=== PATIENT | male | born 1970 | race American Indian/Alaskan Native ===

== ENCOUNTER 2017-07-12 12:03 | Observation (INO) | payer BC ==
[2017-07-11 10:23] LABS: Basophils % (Auto) 0.4 % (0.0-1.8); Eosinophils # (Auto) 0.1 K/mm3 (0.0-0.4); Eosinophils % (Auto) 0.8 % (0.0-4.3); Hematocrit 40.3 % (35.5-45.6); Hemoglobin 13.3 gm/dl (11.8-15.2); Lymphocytes # (Auto) 1.8 K/mm3 (1.2-5.4); Lymphocytes % (Auto) 26.4 % (13.4-35.0); Mean Corpuscular HGB Conc 33 % (32-34); Mean Corpuscular Hemoglobin 29 pg (28-32); Mean Corpuscular Volume 88 fl (84-94); Monocytes # (Auto) 0.5 K/mm3 (0.0-0.8); Monocytes % (Auto) 7.2 % (0.0-7.3); Platelet Count 236 K/mm3 (140-440); Red Blood Count 4.55 M/mm3 (3.65-5.03); Red Cell Distribution Width 14.6 % (13.2-15.2)
[2017-07-11 10:32] LABS: INR 0.99 (0.87-1.13)
[2017-07-11 10:33] LABS: Partial Thromboplastin Time 28.8 Sec. (24.2-36.6)
--- NOTE | 2017-07-11 10:39 | Anesthesia Consultation ---
Anesthesia Consult and Med Hx Date of service: 07/11/17 - Airway Anesthetic Teeth Evaluation: Good ROM Head & Neck: Adequate Mental/Hyoid Distance: Adequate Mallampati Class: Class III Intubation Access Assessment: Probably Good - Pulmonary Exam CTA: Yes - Cardiac Exam Cardiac Exam: RRR - Pre-Operative Health Status ASA Pre-Surgery Classification: ASA2 Proposed Anesthetic Plan: General - Pulmonary Hx Smoking: No Hx Sleep Apnea: No (MARGARITA PRE SCREEN HIGH RISK.) - Cardiovascular System Hx Hypertension: Yes (X 1 YR) - Gastrointestinal Hx Ulcer: No Hx Gastroesophageal Reflux Disease: No - Endocrine Hx Renal Disease: No - Other Systems Hx Cancer: No
[2017-07-11 10:44] LABS: Alanine Aminotransferase 57 units/L (7-56); Albumin 4.2 g/dL (3.9-5); BUN/Creatinine Ratio 18; Blood Urea Nitrogen 21 mg/dL (9-20); Hemolysis Index 12
[~2017-07-12 12:03] MED LIST: DILAUDID IV PRN; LACTATED RINGERS 1,000 ML IV SCH; NACL 0.9% 1000 ML 1,000 ML IV SCH; VERSED IV NR; ZOFRAN IV PRN
[2017-07-12] MEDS ORDERED: VANCOMYCIN/NS 1 GM/250 ML 1 GM/250 ML BAG IV ONE (12:59)
[2017-07-12] MEDS ORDERED: VANCOMYCIN PHARMACY TO DOSE IV SCH (13:00)
[2017-07-12] MEDS ORDERED: GARAMYCIN 120 MG in NACL 0.9% 100 ML IV ONE (13:15)
[2017-07-12] MEDS ORDERED: VANCOMYCIN/0.45 NS 1 GM/250 ML 1 GM/250 ML BAG IV NR (13:30)
--- NOTE | 2017-07-12 14:49 | History and Physical Report ---
History of Present Illness Chief complaint: High blood pressure History of present illness: 47 YO Male with HTN, Obesity admitted for Urology procedure. Consult placed for medical management. Pt seen and evaluated upon arrival to the surgical floor postoperatively. No reported nursing events. Pt denies fever, chills, CP, Palpitations, NVD, Syncope, BRBPR, Productive cough, headache, or skin rash. Pt does complain of generalized pain postop of 4/10. Pt awaiting pain medication. Past History Past Medical History: hypertension Past Surgical History: Other (urologic surgery) Social history: . denies: smoking, alcohol abuse, prescription drug abuse Family history: hypertension Medications and Allergies Allergies Allergy/AdvReac Type Severity Reaction Status Date / Time amoxicillin Allergy Hives Verified 07/10/17 15:23 Home Medications Medication Instructions Recorded Confirmed Last Taken Type Bupropion HCl [Wellbutrin XL] 300 mg PO QAM 07/10/17 07/12/17 07/12/17 08:00 History Losartan [Cozaar] 50 mg PO QDAY 07/10/17 07/10/17 07/11/17 History Vilazodone HCl [Viibryd] 40 mg PO QDAY 07/10/17 07/10/17 07/11/17 History Omeprazole 40 mg PO DAILY 07/12/17 07/12/17 07/12/17 08:00 History Active Meds: Active Medications Sodium Chloride (Nacl 0.9% 1000 Ml) 1,000 mls @ 42 mls/hr IV DIRECT OLIVA Last Admin: 07/12/17 12:45 Dose: 42 mls/hr Lactated Ringer's (Lactated Ringers) 1,000 mls @ 100 mls/hr IV DIRECT OLIVA Midazolam HCl (Versed) 2 mg IV PREOP NR Stop: 07/12/17 23:59 Last Admin: 07/12/17 12:50 Dose: 2 mg Vancomycin HCl (Vancomycin Pharmacy To Dose) 1 each IV PKCONSULT OLIVA Review of Systems Constitutional: no weight loss, no weight gain, no chills Ears, nose, mouth and throat: no ear pain, no ear discharge, no tinnitis, no decreased hearing, no nose pain, no nasal congestion, no nasal discharge Cardiovascular: no chest pain, no orthopnea, no palpitations, no rapid/ irregular heart beat, no edema, no syncope, no lightheadedness Respiratory: no cough, no cough with sputum, no excessive sputum, no hemoptysis , no shortness of breath Gastrointestinal: no nausea, no vomiting, no diarrhea, no constipation Genitourinary Male: no dysuria, no hematuria, no flank pain Rectal: no pain, no incontinence, no bleeding Musculoskeletal: no neck pain, no shooting arm pain, no arm numbness/tingling, no low back pain, no shooting leg pain Integumentary: no rash, no pruritis, no redness, no sores, no wounds, no jaundice Neurological: no transient paralysis, no paralysis, no weakness, no parathesias , no seizures, no syncope Psychiatric: no anxiety, no memory loss, no change in sleep habits, no sleep disturbances, no insomnia Endocrine: no cold intolerance, no heat intolerance, no polyphagia, no excessive thirst, no polydipsia, no polyuria, no nocturia Hematologic/Lymphatic: no easy bruising, no easy bleeding Allergic/Immunologic: no urticaria, no allergic rhinitis, no wheezing, no persistent infections, no anaphylaxis, no angioedema Exam - Constitutional Vitals: Temp Pulse Resp BP Pulse Ox 97.9 F 85 18 136/92 97 07/12/17 12:10 07/12/17 12:10 07/12/17 12:10 07/12/17 12:10 07/12/17 12:10 General appearance: Present: no acute distress, well-nourished - EENT Eyes: Present: PERRL ENT: hearing intact, clear oral mucosa - Neck Neck: Present: supple, normal ROM - Respiratory Respiratory effort: normal Respiratory: bilateral: CTA - Cardiovascular Heart Sounds: Present: S1 & S2. Absent: rub, click - Extremities Extremities: pulses symmetrical, No edema Peripheral Pulses: within normal limits - Abdominal General gastrointestinal: Present: soft, non-tender, non-distended, normal bowel sounds Male genitourinary: Present: normal - Integumentary Integumentary: Present: clear, warm, dry - Musculoskeletal Musculoskeletal: gait normal, strength equal bilaterally - Psychiatric Psychiatric: appropriate mood/affect, intact judgment & insight - Neurologic Neurologic: CNII-XII intact, moves all extremities Results - Labs CBC & Chem 7: 07/11/17 10:00 07/11/17 10:00 Assessment and Plan - Patient Problems (1) HTN (hypertension) Current Visit: Yes Status: Acute Qualifiers: Hypertension type: essential hypertension Qualified Code(s): I10 - Essential (primary) hypertension Plan to address problem: Resume home medication, monitor BP q shift, continue pain control as per primary team.
[2017-07-12] MEDS ORDERED: MARCAINE 0.5% 30 ML INFILTRATI ONE (14:56)
[2017-07-12] MEDS ORDERED: NACL ONE (14:56)
[2017-07-12] MEDS ORDERED: NEOSPORIN GU IR ONE ×2 (14:56→15:35)
[2017-07-12] MEDS ORDERED: DIPRIVAN 10 MG/ML IV ONE (15:00)
[2017-07-12] MEDS ORDERED: ePHEDrine SULFATE ONE (15:00)
[2017-07-12] MEDS ORDERED: ZOFRAN ONE (15:00)
[2017-07-12] MEDS ORDERED: XYLOCAINE MPF 2% ONE (15:00)
[2017-07-12] MEDS ORDERED: DILAUDID ONE (15:00)
[2017-07-12] MEDS ORDERED: NACL 0.9% IR ONE (15:35)
[2017-07-12] MEDS ORDERED: MARCAINE 0.5% INFILTRATI ONE (15:35)
[2017-07-12] MEDS ORDERED: NACL INFILTRATI ONE (15:36)
[2017-07-12] MEDS ORDERED: ZOFRAN IV PRN ×2 (16:34→16:46)
[2017-07-12] MEDS ORDERED: NARCAN 0.4 MG/1 ML IV PRN (16:34)
--- NOTE | 2017-07-12 16:34 | Short Stay Summary ---
Short Stay Documentation Date of service: 07/12/17 - History H&P: obtained from office - Allergies and Medications Current Medications: Allergies amoxicillin Allergy (Verified 07/10/17 15:23) Hives Home Medications Medication Instructions Recorded Confirmed Last Taken Type Bupropion HCl [Wellbutrin XL] 300 mg PO QAM 07/10/17 07/12/17 07/12/17 08:00 History Losartan [Cozaar] 50 mg PO QDAY 07/10/17 07/10/17 07/11/17 History Vilazodone HCl [Viibryd] 40 mg PO QDAY 07/10/17 07/10/17 07/11/17 History Omeprazole 40 mg PO DAILY 07/12/17 07/12/17 07/12/17 08:00 History Active Medications Sodium Chloride (Nacl 0.9% 1000 Ml) 1,000 mls @ 42 mls/hr IV DIRECT OLIVA Last Admin: 07/12/17 12:45 Dose: 42 mls/hr Lactated Ringer's (Lactated Ringers) 1,000 mls @ 100 mls/hr IV DIRECT OLIVA Midazolam HCl (Versed) 2 mg IV PREOP NR Stop: 07/12/17 23:59 Last Admin: 07/12/17 12:50 Dose: 2 mg Vancomycin HCl (Vancomycin Pharmacy To Dose) 1 each IV PKCONSULT OLIVA - Brief post op/procedure progress note Date of procedure: 07/12/17 Pre-op diagnosis: impotence Post-op diagnosis: same Procedure: ipp 21 + 1cm RTE Anesthesia: GETA Surgeon: SABINA SCHAFFER Seal Mixer: DOMINGA WILSON Estimated blood loss: minimal Pathology: none Condition: stable - Hospital course Hospital course: post op info on chart (pt has abx & pain meds) looks good, abraham & wrap removed - Disposition Condition at discharge: Stable Short Stay Discharge Plan Follow up with: LIGIA MCCURDY MD [Primary Care Provider] - 7 Days
[2017-07-12] MEDS ORDERED: SUBLIMAZE IV PRN (16:46)
[2017-07-12] MEDS ORDERED: TORADOL IV PRN (16:46)
[2017-07-12] MEDS ORDERED: NACL 0.45% 1000 ML 1,000 ML IV SCH (17:00)
--- NOTE | 2017-07-12 17:24 | Post Anesthesia Evaluation ---
- Post Anesthesia Evaluation Patient Participated: Yes Airway Patent: Yes Stable Respiratory Function: Yes Nausea/Vomiting: No Temp > 96.8F: Yes Pain Manageable: Yes Adequeate Hydration: Yes Anesthesia Complications: Yes Block Receding Appropriately: Yes Patient on Ventilator: No
--- NOTE | 2017-07-12 18:50 | Operative Report ---
PREOPERATIVE DIAGNOSIS: Erectile dysfunction. POSTOPERATIVE DIAGNOSIS: Erectile dysfunction. PROCEDURE: Insertion of inflatable penile prosthesis (InhibiZone CX 21 cm +1 cm rear tip terrazzo mechanic helper, pharmacologic penile injection. SURGEON: Elvis Holguin MD ANESTHESIA: General anesthesia. FIELD MARKETER: Jarrod Bustamante ESTIMATED BLOOD LOSS: Minimal. FLUIDS: Crystalloid. COMPLICATIONS: No complications. INDICATIONS: This 47-year-old gentleman who has been seen in the office for erectile dysfunction. He has failed medical management, presents now for surgical intervention. Risks, benefits, and complications were explained. The patient agreed to proceed with surgical intervention. His primary care is Kristy Teresa MD. DESCRIPTION OF PROCEDURE: The patient was taken to the operative suite, placed in a supine position. After adequate general anesthesia, he was prepped and draped in a sterile fashion. Serra catheter was placed on the operative field. A metal [place] retractor was used for exposure. Penoscrotal incision was made. Sharp dissection was taken down to the corporal bodies. A 2-0 Vicryl stay stitch was placed bilaterally. Corporotomies were made. Gentle dilation using up to 10 mm, sound was performed without difficulty. Measurements: Total length of 22 cm; therefore, a 21 cm CX InhibiZone device was used with 1 cm rear tip terrazzo mechanic helper. A 100 mL Conceal reservoir was prepped and placed in the retropubic space via the right external ring and 100 mL of saline was inflated with minimal back pressure. The 21 cm device with 1 cm rear tip terrazzo mechanic helper was prepped, placed in the corporal bodies with the aid of a Reynold needle. Corporotomies were closed with 2-0 Vicryl in running fashion. Inflated device, adequate inflation, used approximately 50 mL of saline. The reservoir was connected to the pump using the quick click connection system. Again, we cycled the device with excellent cosmetic response. The pump was placed in the dependent portion of the scrotum, secured into position with 2-0 Vicryl using ____ closure. Dartos layer was closed with 2-0 Vicryl in a running fashion. Skin was closed with 2-0 Vicryl in interrupted fashion. Collodion was placed, mummy wrap as well. The patient tolerated the procedure well and was extubated and taken to recovery room. He will be observed overnight and go home on [employer] and [employer]. JOB# [id number] CLAIRE/TONO
[2017-07-12] MEDS: MORPHINE IV PRN (19:41)
[2017-07-12] MEDS: NORCO 5/325 PO PRN (20:38)
[2017-07-12] MEDS: LACTATED RINGERS 1,000 ML IV SCH (20:46)
[2017-07-13] MEDS ORDERED: VANCOMYCIN/0.45 NS 1 GM/250 ML 1 GM/250 ML BAG IV ONE (03:00)
[2017-07-13] MEDS ORDERED: VANCOMYCIN/NS 1 GM/250 ML 1 GM/250 ML BAG IV SCH (03:00)
[2017-07-13] MEDS: LACTATED RINGERS 1,000 ML IV SCH (03:40)
[2017-07-13] MEDS: MORPHINE IV PRN (05:21)
[2017-07-13] MEDS: NORCO 5/325 PO PRN ×2 (08:32→14:22)
[2017-07-13] MEDS ORDERED: NON-FORMULARY (Omeprazole [Omeprazole] 40 MG) PO SCH (10:00)
[2017-07-13] MEDS ORDERED: COZAAR PO SCH (10:00)
[2017-07-13] MEDS ORDERED: WELLBUTRIN XL PO SCH (10:00)
[2017-07-13] MEDS ORDERED: NON-FORMULARY (Vilazodone Hcl [Viibryd] 40 MG) PO SCH (10:00)
[2017-07-13] MEDS ORDERED: PROTONIX PO SCH (10:00)
[2017-07-13] MEDS ORDERED: NON-FORMULARY (Bupropion Hcl [Wellbutrin Xl] 300 MG) PO SCH (10:00)
[2017-07-13 13:20] VITALS: BP 135/79
== END 2017-07-13 14:45 | disposition home or self-care (01) ==
LOC: OR 12:03 → 3B-SURG 16:34
PROVIDERS: ADMIT Urology; ATTEND Urology
DX: N52.01 Erectile dysfunction due to arterial insufficiency (principal); I10 Essential (primary) hypertension; E29.1 Testicular hypofunction; E66.9 Obesity, unspecified; Z68.30 Body mass index [BMI] 30.0-30.9, adult
CPT/HCPCS: 36415; 54405; 80053; 85025; 85610; 85730; 96365; 96366; 96375; 96376; C1813; G0378; J1170; J1580; J2250; J2270; J2405; J2704; J3370; J7030; J7120

== ENCOUNTER 2020-01-06 06:02 | Observation (INO) | payer BC ==
--- NOTE | 2020-01-02 15:07 | Anesthesia Consultation ---
Anesthesia Consult and Med Hx Date of service: 01/02/20 - Airway Anesthetic Teeth Evaluation: Bridges ROM Head & Neck: Adequate Mental/Hyoid Distance: Adequate Mallampati Class: Class II Intubation Access Assessment: Good - Pre-Operative Health Status ASA Pre-Surgery Classification: ASA3 Proposed Anesthetic Plan: General - Pulmonary Hx Smoking: No COPD: No (+2FS) Hx Pneumonia: No Hx Sleep Apnea: Yes (DX SLEEP APNEA WITH CPAP USE.) - Cardiovascular System Hx Hypertension: Yes (X 3 YR) - Central Nervous System Hx Psychiatric Problems: Yes (Anxiety/Depression) - Gastrointestinal Hx Ulcer: No Hx Gastroesophageal Reflux Disease: No - Endocrine Hx Renal Disease: No Hx End Stage Renal Disease: No Hx Non-Insulin Dependent Diabetes: No - Hematic Hx Sickle Cell Disease: No - Other Systems Hx Cancer: No
[2020-01-02 15:15] LABS: Hematocrit 47.7 % (35.5-45.6); Hemoglobin 16.2 gm/dl (11.8-15.2); Mean Corpuscular HGB Conc 34 % (32-34); Mean Corpuscular Volume 88 fl (84-94); Platelet Count 254 K/mm3 (140-440); Red Blood Count 5.41 M/mm3 (3.65-5.03); Red Cell Distribution Width 14.4 % (13.2-15.2)
[2020-01-02 15:38] LABS: Alanine Aminotransferase 22 units/L (7-56); Albumin 4.5 g/dL (3.9-5); BUN/Creatinine Ratio 16; Blood Urea Nitrogen 18 mg/dL (9-20); Calcium 9.2 mg/dL (8.4-10.2); Hemolysis Index 16
[~2020-01-06 06:02] MED LIST changes: +ACETAMINOPHEN 500 MG TAB PO ONE; +CELECOXIB 200 MG CAP PO NR; -DILAUDID IV PRN; +GABAPENTIN 300 MG CAP PO NR; +GENTAMICIN 0 MG in SODIUM CHLORIDE 0.9% 100 ML IV ONE; +GENTAMICIN 400 MG in SODIUM CHLORIDE 0.9% 100 ML IV ONE; +MAGNESIUM OXIDE 400 MG TAB PO ONE; -NACL 0.9% 1000 ML 1,000 ML IV SCH; +VANCOMYCIN 1,500 MG in SODIUM CHLORIDE 0.9% 500 ML 500 ML IV ONE; -VERSED IV NR; -ZOFRAN IV PRN
[2020-01-06] MEDS ORDERED: BACTERIOSTATIC SODIUM CHLORIDE 0.9% 30 ML VIAL INFILTRATI ONE (06:13)
[2020-01-06] MEDS ORDERED: rifAMPin 600 MG VIAL ONE (06:19)
[2020-01-06] MEDS ORDERED: SODIUM CHLORIDE 0.9% 0 ML ONE (06:19)
[2020-01-06] MEDS ORDERED: BUPIVACAINE/PF (0.5%) 5 MG/1 ML 30 ML VIAL INFILTRATI ONE (06:19)
[2020-01-06] MEDS ORDERED: GENTAMICIN 40 MG/ML VIAL 2 ML ONE (06:19)
[2020-01-06] MEDS ORDERED: SODIUM CHLORIDE 0.9% 500 ML 500 ML ONE (06:19)
[2020-01-06] MEDS ORDERED: NEOMY 40 MG/POLYMYXIN B 200,000 UNITS/ML (GU) AMPULE IR ONE ×3 (06:20→09:04)
[2020-01-06] MEDS ORDERED: MIDAZOLAM 2 MG/2 ML INJ IV ONE (06:40)
[2020-01-06] MEDS ORDERED: ONDANSETRON 4 MG/2 ML INJ IV PRN ×2 (07:26→10:00)
[2020-01-06] MEDS ORDERED: HYDROmorphone 1 MG/1 ML INJ IV PRN (07:26)
--- NOTE | 2020-01-06 07:27 | Anesthesia Day of Surgery ---
Anesthesia Day of Surgery - Day of Surgery Patient Examined: Yes Patient H&P Reviewed: Yes Patient is NPO: Yes
[2020-01-06] MEDS ORDERED: propofoL 200 MG/20 ML VIAL IV ONE (07:36)
[2020-01-06] MEDS ORDERED: fentaNYL 100 MCG/2 ML INJ ONE ×2 (07:36→08:37)
[2020-01-06] MEDS ORDERED: HYDROmorphone 1 MG/1 ML INJ ONE (08:02)
[2020-01-06] MEDS ORDERED: LIDOCAINE MPF (2%) 20 MG/1 ML VIAL 5 ML ONE (08:02)
[2020-01-06] MEDS ORDERED: dexAMETHasone 20 MG/5 ML VIAL ONE (08:02)
[2020-01-06] MEDS ORDERED: PHENYLEPHRINE/NS 1,000 MCG/10 ML SYRINGE (OR USE) IV ONE (08:02)
[2020-01-06] MEDS ORDERED: SUCCINYLCHOLINE CHLORIDE 200 MG/10 ML INJ MDV ONE (08:02)
[2020-01-06] MEDS ORDERED: GLYCOPYRROLATE 0.4 MG/2 ML INJ ONE (08:02)
[2020-01-06] MEDS ORDERED: ONDANSETRON 4 MG/2 ML INJ ONE (08:02)
--- NOTE | 2020-01-06 09:10 | Short Stay Summary ---
Short Stay Documentation Date of service: 01/06/20 Narrative H&P: 49 yr male with malfuncion ipp (won't pump up) no signs of infections - History H&P: obtained from office Past Medical History: other (hypogonadism) Past Surgical History: Other (ipp 2018) Social history: no significant social history, - Allergies and Medications Current Medications: Allergies amoxicillin Allergy (Verified 07/10/17 15:23) Hives Home Medications Medication Instructions Recorded Confirmed Last Taken Type amLODIPine [Norvasc] 5 mg PO DAILY 12/25/19 01/06/20 01/06/20 05:00 History Active Medications Celecoxib (Celebrex) 400 mg PO PREOP NR Stop: 01/06/20 23:59 Last Admin: 01/06/20 06:40 Dose: 400 mg Documented by: Gabapentin (Gabapentin) 300 mg PO PREOP NR Stop: 01/06/20 23:59 Last Admin: 01/06/20 06:40 Dose: 300 mg Documented by: Hydromorphone HCl (Dilaudid) 0.5 mg IV Q10MIN PRN PRN Reason: Pain , Severe (7-10) Stop: 01/06/20 23:00 Lactated Ringer's (Lactated Ringers) 1,000 mls @ 125 mls/hr IV DIRECT OLIVA Last Admin: 01/06/20 06:50 Dose: 125 mls/hr Documented by: Ondansetron HCl (Zofran) 4 mg IV ONCE PRN PRN Reason: Nausea And Vomiting Stop: 01/06/20 18:00 - Brief post op/procedure progress note Date of procedure: 01/06/20 Pre-op diagnosis: malfunction ipp (AMS inhibizone) Post-op diagnosis: same Procedure: repair / replace ipp ([id number]) Anesthesia: GETA Surgeon: SABINA SCHAFFER Estimated blood loss: minimal Pathology: list (reservior) Specimen disposition: to lab Condition: stable - Hospital course Hospital course: bactrim & norco on chart abraham removed - Disposition Condition at discharge: Stable Disposition: DC-01 TO HOME OR SELFCARE Short Stay Discharge Plan Follow up with: LIGIA MCCURDY MD [Primary Care Provider] - 7 Days
[2020-01-06] MEDS ORDERED: NALOXONE 0.4 MG/1 ML INJ IV PRN (10:00)
[2020-01-06] MEDS ORDERED: HYDROcodone/ACETAMINOPHEN 5-325 MG TAB PO PRN (10:00)
[2020-01-06] MEDS ORDERED: MORPHINE 2 MG/1 ML INJ IV PRN (10:00)
[2020-01-06] MEDS ORDERED: ACETAMINOPHEN 325 MG TAB PO PRN (10:00)
[2020-01-06] MEDS ORDERED: SODIUM CHLORIDE 0.9% 1000 ML 1,000 ML ONE (12:22)
--- NOTE | 2020-01-06 12:22 | Operative Report ---
PREOPERATIVE DIAGNOSIS: Malfunctioning penile prosthesis. POSTOPERATIVE DIAGNOSIS: Malfunctioning penile prosthesis. PROCEDURE: Repair of multicomponent inflatable penile prosthesis ([id number]). SURGEON: Elvis Holguin MD ANESTHESIA: General. SPECIALTY PLANT SUPERVISOR: Rosie Segura ESTIMATED BLOOD LOSS: Minimal. FLUIDS: Crystalloid. COMPLICATIONS: No complications. INDICATIONS: This patient is a 49-year-old gentleman known to our service with a history of erectile dysfunction, refractory to medical management. Also has a history of hypertension. He had a penile prosthesis placed 06/2017, did well, also developed a herniation of his reservoir over time. Device continued to work; however, recently, the patient states device was nonfunctional. On exam, the pump would not inflate, suspect valve problem. He presents now for revision replacement. DESCRIPTION OF PROCEDURE: The patient was taken to the operative suite, placed in a supine position. After adequate general anesthesia, placed in a supine position, prepped and draped in a sterile fashion. Serra catheter was placed on the operative field. Attempts to inflate the device were unsuccessful. There appeared the fluid would not fill out the pumping mechanism. Transscrotal incision was made with the Bovie. Sharp dissection was taken down to the pump, again it was consistent with either a leak or incomplete filling of the pump. Anaerobic and aerobic cultures were obtained. No signs of infection could be appreciated. Dissection was then taken to the reservoir, which was in the right hemiscrotum. The ____. The reservoir was dissected free. There were multiple areas of kinking on the tubing, but was straightened and then you could see there thinning of the tubing at the reservoir joint. At that point, it was elected to replace it to prevent any further problems and placed the pump in a more dependent portion of the retroperitoneum. ____ the retropubic space was entered with my finger. A pouch was created more posterior to the initial site. A new reservoir was placed into this space and filled with 100 mL of saline. Pursestring suture was then placed to secure it into position. It was then attached to the previous pump with the quick click connection system. Pumping mechanism was cycled with adequate erection. Further examination of the cylinders, the tips were in the mid glans area. It appeared now that we could pump to full expansion, which probably could not be done in the past. Manipulation of the cylinders to break up any plaque formation and inflation again revealed an adequate erection. Therefore, the cylinders were not replaced. Copious irrigation was performed. Adequate hemostasis achieved. A pursestring suture was used to secure the pump in a dependent portion of the scrotum using 2-0 Vicryl. The dartos layer was closed with 2-0 Vicryl in a running fashion. Skin was closed with 2-0 Vicryl in interrupted fashion. Collodion and mummy wrap was placed. The patient tolerated the procedure well and was extubated and taken to recovery room. He will be observed overnight and go home on [place] [facility] [place]. JOB# [id number] CLAIRE/TONO
--- NOTE | 2020-01-06 13:58 | Post Anesthesia Evaluation ---
- Post Anesthesia Evaluation Patient Participated: Yes Airway Patent: Yes Stable Respiratory Function: Yes Nausea/Vomiting: No Temp > 96.8F: Yes Pain Manageable: Yes Adequeate Hydration: Yes Anesthesia Complications: No
[2020-01-06] MEDS: SODIUM CHLORIDE 0.45% 1000 ML 1,000 ML IV SCH ×2 (14:55→22:50)
[2020-01-06] MEDS ORDERED: ZOLPIDEM 5 MG TAB PO PRN (21:00)
[2020-01-07] MEDS: SODIUM CHLORIDE 0.45% 1000 ML 1,000 ML IV SCH (06:54)
[2020-01-07 07:54] VITALS: BP 137/80
[2020-01-07] MEDS: amLODIPine 5 MG TAB PO SCH ×2 (08:56→09:00)
== END 2020-01-07 11:45 | disposition home or self-care (01) ==
LOC: OR 06:02 → 3A 09:11 → 3B 11:44
PROVIDERS: ADMIT Urology; ATTEND Urology
DX: T83.490A Other mechanical complication of implanted penile prosthesis, initial encounter (principal); N52.9 Male erectile dysfunction, unspecified; E29.1 Testicular hypofunction
CPT/HCPCS: 36415; 54408; 80053; 85027; 87075; 87116; 88300; 94760; 96361; 96374; 96375; G0378; J0330; J1100; J1170; J1580; J2250; J2270; J2370; J2405; J2704; J3010; J3370; J7030; J7040; J7120; U0003; 88302; J3490